=== PATIENT | female | born 1960 | race Caucasian/White ===

== ENCOUNTER 2017-10-27 08:17 | Day surgery (SDC) | payer MEDICARE ==
[2017-10-24 13:54] VITALS: BMI 27.1
--- NOTE | 2017-10-26 23:40 | HP ---
HISTORY OF PRESENT ILLNESS: Ms. Marcano presents for discussion of bilateral right greater than left C6 and C7 radiculopathies with subjective weakness. She does get tingling in her hands and drops ite ms often. She also reports intrascapular pain. MRI from [facility] reveals mild to moderate st enosis bilaterally at C5-C6 as well as at C6-C7 that match her symptoms. She has had injections with Dr. Abarca, but I do not feel it helped her a great deal. She is here for as possible surgical discussion. PAST MEDICAL HISTORY: Hypertension, hypercholesterolemia, Crohn's disease, gastroesophageal reflux, osteoarthritis, depression, migraines, COPD, hypothyroidism. ALLERGIES: DEMEROL and FLEXERIL. CURRENT MEDICATIONS: Include Humira, gabapentin, fentanyl, [place], Zanaflex, Cymbalta, alprazolam, Li pitor, dicyclomine, promethazine, aspirin, Trintellix, and Benadryl. PHYSICAL EXAMINATION: The patient is alert and oriented x3. Gait is normal, no ataxia. Upper extre mity motor exam reveals full strength bilaterally in all muscle groups in the upper extremities. The re is a positive Spurling's to the right and left. Reflexes are equal and present bilaterally at the biceps tendon. ASSESSMENT: Cervical radiculopathy. PLAN: Discussed the case with Dr. Todd, who met with the patient, reviewed imaging and ultimately a dvocated for a C5 through C7 ACDF. He explained to the patient the risks, benefits, and alternatives to the procedure. The patient expressed understanding and would like to move forward with surgery a s discussed. I do believe the patient is mentally competent and capable of making medical decisions for himself and we will move forward with surgery as planned. This is Pavel Rockwell PA-C, dictating for Dom Todd M.D.
[2017-10-27] MEDS ORDERED: CEFAZOLIN/Water 2 GM/20 ML SYRINGE ONE (09:11)
[2017-10-27] MEDS ORDERED: Fentanyl 250 MCG/5 ML VIAL ONE (11:28)
[2017-10-27] MEDS ORDERED: Thrombin 5000 UNITS/5 ML VIAL ONE (11:35)
[2017-10-27] MEDS ORDERED: Fentanyl 100 MCG/2 ML VIAL ONE ×2 (13:52→14:15)
--- NOTE | 2017-10-27 14:21 | OP ---
DATE OF PROCEDURE: 10/27/2017 SURGEON: Dr. Dom Todd HAND REAMER: Bob Rockwell PA-C. INDICATION: Pain. PREOPERATIVE DIAGNOSES: Cervical stenosis with myelopathy and radiculopathy. PROCEDURE: Anterior cervical discectomy and fusion C5-C7. ANESTHESIA: General. PROCEDURE IN DETAIL: The patient was brought into the operating room and placed under general anesth esia. She was placed on the table in a supine position. A transverse incision was planned over the lateral aspect neck on the right. After prepping and draping and after an appropriate operative paus e, the incision was created. The underlying platysma muscle was identified and incised. A blunt tis wilton plane anterior to the sternocleidomastoid muscle was used to gain access to the prevertebral spac e. After confirming the appropriate levels, the C-arm fluoroscopy annulotomies were performed in the C5-6 and C6-7 disk spaces. All disk material as well as anterior and posterior osteophytes were rem kadi. A 6 mm lordotic PEEK cage packed with allograft and autograft material was placed in the inter body space. An anterior cervical plate was then fashioned in the front of the spine and secured with a total of 6 screws. Midline and lateral structures were inspected and found to be free from signif icant trauma. The wound was irrigated. Hemostasis was maintained throughout. The wound was then cl osed in anatomic layers and a pressure dressing was applied. There were no known procedural complica tions.
[2017-10-27] MEDS ORDERED: Propofol 200 MG/20 ML VIAL ONE (16:31)
[2017-10-27] MEDS ORDERED: Glycopyrrolate 0.2 MG/ML 5 ML SYRINGE ONE (16:31)
[2017-10-27] MEDS ORDERED: Dexamethasone 20 MG/5 ML VIAL ONE (16:31)
[2017-10-27] MEDS ORDERED: Lidocaine 1% PF 5 ML VIAL ONE (16:31)
[2017-10-27] MEDS ORDERED: Ondansetron HCl/PF 4 MG/2 ML Vial ONE (16:31)
[2017-10-27] MEDS ORDERED: Ketorolac Tromethamine 30 MG/ML VIAL ONE (16:31)
--- NOTE | 2017-10-27 18:21 | EKG ---
Test Reason : PREOP Blood Pressure : / mmHG Vent. Rate : 062 BPM Atrial Rate : 062 BPM P-R Int : 236 ms QRS Dur : 094 ms QT Int : 416 ms P-R-T Axes : 055 -17 010 degrees QTc Int : 422 ms Sinus rhythm with 1st degree A-V block Otherwise normal ECG When compared with ECG of 20-SEP-2016 12:25, Criteria for Inferior infarct are no longer Present Nonspecific T wave abnormality no longer evident in Anterior leads Confirmed by SARKIS HUFFMAN ([id number]) on 10/27/2017 6:20:49 PM Referred By: ZE Confirmed By:SARKIS HUFFMAN
== END 2017-10-27 15:30 | disposition home or self-care (01) ==
LOC: SDC 08:17
PROVIDERS: ATTEND Neurological Surgery
PROC: 0RG20A0 Fusion of 2 or more Cervical Vertebral Joints with Interbody Fusion Device, Anterior Approach, Anterior Column, Open Approach (ICD-10-PCS; principal; 2017-10-27)
PROC: 0RG2070 Fusion of 2 or more Cervical Vertebral Joints with Autologous Tissue Substitute, Anterior Approach, Anterior Column, Open Approach (ICD-10-PCS; 2017-10-27)
PROC: 0RG20K0 Fusion of 2 or more Cervical Vertebral Joints with Nonautologous Tissue Substitute, Anterior Approach, Anterior Column, Open Approach (ICD-10-PCS; 2017-10-27)
PROC: 0RT30ZZ Resection of Cervical Vertebral Disc, Open Approach (ICD-10-PCS; 2017-10-27)
DX: M48.02 Spinal stenosis, cervical region (principal); M54.12 Radiculopathy, cervical region; I10 Essential (primary) hypertension; E78.00 Pure hypercholesterolemia, unspecified; K50.90 Crohn's disease, unspecified, without complications; K21.9 Gastro-esophageal reflux disease without esophagitis; M19.90 Unspecified osteoarthritis, unspecified site; F32.9 Major depressive disorder, single episode, unspecified; G43.909 Migraine, unspecified, not intractable, without status migrainosus; E03.9 Hypothyroidism, unspecified; J44.9 Chronic obstructive pulmonary disease, unspecified; Z79.82 Long term (current) use of aspirin; Z79.899 Other long term (current) drug therapy; Z79.891 Long term (current) use of opiate analgesic; Z88.8 Allergy status to other drugs, medicaments and biological substances; Z88.5 Allergy status to narcotic agent; Z98.890 Other specified postprocedural states; Z90.49 Acquired absence of other specified parts of digestive tract; Z90.710 Acquired absence of both cervix and uterus; Z96.652 Presence of left artificial knee joint
CPT/HCPCS: 20930; 20936; 22551; 22552; 22845; 22853 ×2; 76001; 93005; 96374; C1713; 93010; J1100; J1885; J2001; J2405; J2704; J3010

== ENCOUNTER 2017-12-11 14:10 | Outpatient (CLI) | payer MEDICARE ==
--- NOTE | 2017-12-11 15:29 | RAD ---
CERVICAL SPINE THREE VIEWS: History: Follow up surgery. M24.12 Comparison: None. FINDINGS: Hardware at C5-7. Satisfactory appearance of the intervertebral disc spaces. No hardware complication . No acute fracture or malalignment. IMPRESSION: Satisfactory post-operative appearance. POS: [facility]
== END 2017-12-11 14:11 | disposition home or self-care (01) ==
LOC: TBSIIMAG 14:10
PROVIDERS: ATTEND Neurological Surgery
DX: M54.12 Radiculopathy, cervical region (principal); Z98.890 Other specified postprocedural states
CPT/HCPCS: 72040

== ENCOUNTER 2019-02-12 11:59 | Outpatient (CLI) | payer MEDICARE ==
--- NOTE | 2019-02-12 15:05 | RAD ---
LEFT WRIST TWO VIEWS: HISTORY: Pain. COMPARISON: None. FINDINGS: There is extensive lateral subluxation of the thumb and carpometacarpal joint, likely an old tear of anterior oblique ligament. There is widening at the scapholunate interval. There is no acute fractu re. IMPRESSION: 1. Advanced degenerative changes of the thumb carpometacarpal joint with dorsolateral subluxation of the metacarpal base relative to the trapezium, likely through an old tear of the partially ossified anterior oblique ligament. 2. Mildly widened scapholunate interval without proximal migration of the capitate. POS: [facility]
== END 2019-02-12 12:00 | disposition home or self-care (01) ==
LOC: BICRAD 11:59
PROVIDERS: ATTEND Specialist
DX: M25.532 Pain in left wrist (principal); M18.12 Unilateral primary osteoarthritis of first carpometacarpal joint, left hand; S63.042A Subluxation of carpometacarpal joint of left thumb, initial encounter

== ENCOUNTER 2019-03-04 14:40 | Outpatient (CLI) | payer MEDICARE ==
--- NOTE | 2019-03-04 15:55 | MRI ---
MRI Upper Ext Jt Lt WO Con History: [M 25.532 left wrist pain] Comparison: Wrist radiograph February 12, 2019 Findings: Bones: Mild widening of the scapholunate interval. Mild dorsal angulation of the lunate and volar angulation of the scaphoid. There is lateral subluxation of the thumb carpometacarpal joint with ossification of the anterior obl ique ligament which is torn. There is narrowing of the joint space between the lunate and capitate. Small subcortical cyst formation of the the lunate and capitate. There is no acute fracture or malalignment. Ligaments: The high-grade partial tearing of the dorsal radial ligament, dorsal central ligament, and the posterior oblique ligament, the dorsal ligaments of the thumb carpometacarpal joint. There is tear of the central membranous and dorsal component of the scapholunate ligament. There is also abnor mal edema and partial tearing of the dorsal intercarpal ligament. Triangular fibrocartilage: No tear is appreciated. Mild degenerative signal within the foveal and sty loid insertions. Tendons: Normal location of the extensor carpi ulnaris tendon. The subsheath is intact. There is a lo ngitudinal split tear of the abductor pollicis longus tendon with tenosynovitis of the first extensor compartment distal to the radial styloid. Moderate adjacent soft tissue swelling. Flexor ten dons are intact. Impression: 1. Tenosynovitis of the first extensor compartment distal to the radial styloid are within interstiti al linear tear of the abductor pollicis longus tendon for length of approximately 3 cm. 2. Chronic tear of the dorsal scapholunate ligament and membranous portion of the scapholunate ligame nt with subtle widening. 3. Intact triangular fibrocartilage with mild degeneration of the foveal and the styloid insertions. 4. Chronic appearing tear of the dorsal intercarpal ligament with underlying synovitis. 5. Chronic tears of the anterior oblique ligament of the thumb carpometacarpal joint with chronic str etching/high-grade tearing of the dorsal ligaments of the carpometacarpal joint. There is subluxation laterally of the thumb metacarpal base relative to the trapezium.
== END 2019-03-04 14:41 | disposition home or self-care (01) ==
LOC: BICMRI 14:40
PROVIDERS: ATTEND Specialist
DX: M25.532 Pain in left wrist (principal); S63.8X2D Sprain of other part of left wrist and hand, subsequent encounter; S63.042D Subluxation of carpometacarpal joint of left thumb, subsequent encounter; S66.912D Strain of unspecified muscle, fascia and tendon at wrist and hand level, left hand, subsequent encounter; S63.512D Sprain of carpal joint of left wrist, subsequent encounter; M65.832 Other synovitis and tenosynovitis, left forearm

== ENCOUNTER 2019-03-27 15:13 | Emergency (ER) | payer MEDICARE ==
[2019-03-27] MEDS ORDERED: methylPREDNISolone Sod Succ/PF 125 MG/2 ML VIAL ONE (16:12)
[2019-03-27 16:27] LABS: #Basophils 0.1 thou/uL (0.0-0.2); #Eosinphils 0.1 thou/uL (0.0-0.7); #Lymphocytes 1.5 thou/uL (1.20-3.40); #Neutrophils 6.8 thou/uL (1.40-6.50); %Basophils 0.9 % (0.0-1.0); %Eosinophils 1.1 % (0.0-10.0); %Lymphocytes 15.5 % (21.0-51.0); %Monocytes 10.3 % (0.0-10.0); %Neutrophils 72.2 % (42.0-75.0); Hemoglobin 11.5 g/dL (12.0-16.0); Mean Corpuscular HGB CONC 31.8 g/dL (32.0-36.0); Mean Corpuscular Hemoglobin 26.9 pg (27.0-31.0); Mean Corpuscular Volume 84.6 fL (78.0-98.0); Mean Platelet Volume 9.1 fL (7.4-10.4); Platelet Count 277 thou/uL (130-400); RBC Distribution Width 17.8 % (11.5-14.5); Red Blood Cell (RBC) Count 4.27 mill/uL (4.20-5.40); White Blood Cell (WBC) Count 9.5 thou/uL (4.8-10.8)
--- NOTE | 2019-03-27 16:42 | RAD ---
2 views of chest 03/27/2019 HISTORY: Dyspnea FINDINGS: There is a large hiatal hernia measuring approximately 17 cm in transverse dimension and 12 cm in craniocaudal dimension. There is mild pulmonary vascular prominence. Cardiac silhouette is mildly prominent as well. No pneumothorax, pleural fluid, lobar consolidation, or alveolar edema. Que stionable subcentimeter pulmonary nodules versus vascular prominence noted. Nonemergent follow-up CT examination of the chest suggested. IMPRESSION: Large hiatal hernia. No lobar consolidation or alveolar edema. Code lung nodule
[2019-03-27 16:48] LABS: ALT (SGPT) 17 U/L (8-55); AST (SGOT) 31 U/L (5-34); Albumin 4.1 g/dL (3.5-5.0); Alkaline Phosphatase 187 U/L (40-150); Anion Gap 15 mmol/L (10-20); BUN (Urea Nitrogen) 25 mg/dL (9.8-20.1); Bilirubin, Total 0.3 mg/dL (0.2-1.2); Calc. Creatinine Clearance 0 mL/min (70-130); Calcium 9.2 mg/dL (7.8-10.44); Carbon Dioxide 24 mmol/L (22-29); Chloride 103 mmol/L (98-107); Estimated GFR-MDRD 37; Globulin 2.7 g/dL (2.4-3.5); Glucose 99 mg/dL (70-105); Potassium 4.2 mmol/L (3.5-5.1); Protein, Total 6.8 g/dL (6.0-8.3); Sodium 138 mmol/L (136-145)
[2019-03-27] MEDS ORDERED: Azithromycin 250 MG TAB ONE (18:48)
[2019-03-27] MEDS ORDERED: cefTRIAXone\\ROCEPHIN 2 GM VIAL ONE (18:48)
[2019-03-27] MEDS ORDERED: Sodium Chloride 0.9% 100 ML ONE (18:48)
== END 2019-03-27 19:15 | disposition home or self-care (01) ==
LOC: ERS 15:13
DX: J44.1 Chronic obstructive pulmonary disease with (acute) exacerbation (principal); H66.91 Otitis media, unspecified, right ear; F41.9 Anxiety disorder, unspecified; F32.9 Major depressive disorder, single episode, unspecified; F17.210 Nicotine dependence, cigarettes, uncomplicated; K50.90 Crohn's disease, unspecified, without complications; Z71.6 Tobacco abuse counseling
CPT/HCPCS: 71046; 80053; 84484; 85025; 87804; 93005; 94640; 94760; 96365; 96375; J0696; J2930; J3490; J7620